=== PATIENT | female | born 1970 | race African-American/Black ===

== ENCOUNTER 2022-02-09 20:40 | Emergency (ER) | payer SELFPAY ==
[~2022-02-09] VITALS: Ht 170.2 cm; Wt 90.3 kg
--- NOTE | 2022-02-09 21:03 | NUR ---
Dr. Helton speaking to patient in bar[place]. MSE in progress.
--- NOTE | 2022-02-09 21:14 | NUR ---
Patient discharged to home in stable condition. A/O x3. NAD noted. Ambulatory with a steady gait. All belongings with patient. Written and verbal after care instructions given. Patient verbalizes understanding of instructions. Stressed follow up or return to ER for worsening s/s.
[2022-02-09 21:17] VITALS: BP 121/62
== END 2022-02-09 21:14 | disposition home or self-care (01) ==
LOC: ER 20:40
DX: R55 Syncope and collapse (principal)
CPT/HCPCS: A4663